=== PATIENT | female | born 1945 | race Caucasian/White ===

== ENCOUNTER → 2017-05-09 | Day surgery (SDC) | payer MEDICARE, OTHER ==
[~2017-05-09] VITALS: Ht 158.8 cm; Wt 65.3 kg
[~2017-05-09] MED LIST: 0.9% Sodium Chloride 1,000 ML IV SCH; ASCO500C6 PO; ASPI-351 PO; CALC-243 PO; CHOL100045 PO; CYCL1DRO OP; FLAX100038 PO; GLPZ5T PO; LISI-571 PO; METF850T2 PO; MULT-1018 PO; OMEG-38 PO; SIMV80TA4 PO; Sodium Chloride LOK Flush 10 mL Syringe IV PRN; VITA150T PO; fentaNYL-PF 50 mCg/mL 2 mL Inj IVPUSH PRN
[2017-05-09 07:48] VITALS: BP 126/67; PULSE 64; RESP 17; O2SAT 96
[2017-05-09 08:33] VITALS: BP 116/64; PULSE 72; RESP 16; O2SAT 99
[2017-05-09 08:43] VITALS: BP 114/59; PULSE 58; RESP 16; O2SAT 97
--- NOTE | 2017-05-09 08:45 | ENDO ---
[address] [address] ENDOSCOPY PROCEDURE PATIENT: ALFREDO JOHNSON : 1945 MR#: [id number] ADMIT: 05/09/2017 JOB ID: [id number] DATE OF SERVICE: 05/09/2017 PREOPERATIVE DIAGNOSIS: Personal history of colon polyps. POSTOPERATIVE DIAGNOSES: 1. Transverse colon polyp. 2. Pandiverticulosis. OPERATION: Colonoscopy to cecum with cold forceps polypectomy. SURGEON: Jakub Burton MD. INDICATIONS: A 72-year-old female, who has a past history of colon polyps. Her most recent colonoscopy five years ago did not reveal any polyps but she had previously had colonoscopies in [place] which demonstrated colonic polyps. After discussing options with the patient, it was elected proceed with a colonoscopy. FINDINGS: She had pandiverticulosis. She had a fair prep. There were fecaliths and pools of turbid stool throughout the colon. The scope was advanced to the cecum. It was withdrawn over 8 minutes and 50 seconds. There was a small polyp identified in the distal transverse colon that I removed with cold forceps. There was no bleeding. No other polyps were identified. Retroflexed views of the rectum were obtained. IMPRESSION: 1. Small, 2-3 mm transverse colon polyp. 2. Pandiverticulosis. RECOMMENDATIONS: Repeat colonoscopy in five years.
[2017-05-09 08:52] VITALS: BP 121/65; PULSE 73; RESP 16; O2SAT 98
--- NOTE | 2017-05-10 15:24 | PATH ---
SURGICAL PATHOLOGY Attending Physician:Mirza Magallanes CASE STATUS: Signed Out PATIENT NAME: ALFREDO JOHNSON PID: [id number] : 1945 DATE COLLECTED:05/09/2017 18:53 SPECIMEN: Colon, Polyp CLINICAL HISTORY: 1). 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 ICD10 D12.6 GROSS DESCRIPTION: The specimen is received in one formalin filled container labeled with the patient's name, sublabeled "transverse polyp" and consists of a 0.3 x 0.2 x 0.2 CM portion of tissue which is entirely submitted in one cassette. 05/09/2017DC MICRO DESCRIPTION: See diagnosis. ICD-9 CODES: CPT CODES: 1: 05193 Electronically Signed Out Adelso Borden MD [facility] Pathology [facility] [address], [place] [address] Technical component performed at [facility], [address] [place] [address] Ave[address], [place], [address]
== END | disposition home or self-care (01) ==
LOC: END 01:01
PROVIDERS: ATTEND Surgery
DX: Z12.11 Encounter for screening for malignant neoplasm of colon (principal); D12.3 Benign neoplasm of transverse colon; K57.30 Diverticulosis of large intestine without perforation or abscess without bleeding; Z86.010 Personal history of colon polyps; I10 Essential (primary) hypertension; E78.00 Pure hypercholesterolemia, unspecified; E11.9 Type 2 diabetes mellitus without complications; Z85.3 Personal history of malignant neoplasm of breast; Z87.891 Personal history of nicotine dependence; Z79.82 Long term (current) use of aspirin
CPT/HCPCS: 45380; 88305; 99153; G0500; J2250; J3010; J7030